=== PATIENT | female | born 1940 | race Two or more races ===

== ENCOUNTER 2022-04-13 16:48 | Inpatient (IN) | payer MEDICARE, OTHER ==
[~2022-04-13] VITALS: Ht 154.9 cm; Wt 56.2 kg
--- NOTE | 2022-04-13 18:50 | NUR ---
PATIENT ADMITTED FROM [facility] ACCOMPANIED BY 2 sock ironer WITH TON, REPORTED BY MATT/RN OVER THE PHONE. ADMITTING DX ARE ACUTE HYPOXIA, PNEUMONIA, AND RESPIRATORY FAILURE. IN NO ACUTE DISTRESS OBSERVED, CHECKED VITAL SIGN. CALL LIGHT WITHIN REACH, WILL ENDORSE BOAT OUTFITTING SUPERVISOR.
--- NOTE | 2022-04-13 19:30 | NUR ---
RN NOTE PT RECEIVED IN BED A/O X3-4 WELSH SPEAKING MAINLY BUT CAN COMMUNICATE NEEDS IN PALESTINIAN. PT FAMILY AT BEDSIDE ABLE TO PROVIDE MEDICAL HISTORY. PT ON 5L NC TOLERATING WELL ON 97 % PT TITRATED DOWN TO 4L 95% TOLERATING WELL. PT ON TELE MONITOR READING A-FIB 119. ALL NEEDS MET AT THIS TIME CALL LIGHT WITHIN REACH TABLE WITHIN REACH. PT NOTED WITH IV ACCES ON THE RAC 320G FLUSHING WELL. NEW IV ACCESS ESTABLISHED ON L HAND 322G PT WILL BE HAVING MULTIPLE REPLETIONS AND ATX ADMINISTERED. Addendum: 04/14/22 at 0456 by BAHMAN CANNON RN UPON SKIN ASSESSMENT PT NOTED WITH L INDEX FINGER CUT, BILATERAL HEEL REDNESS, SACRUM/ PERINEAL REDNESS AND HEMORRHOIDS. PHOTOS TAKEN PLACED IN CHART WOUND CONSULT ORDERED.
[2022-04-13 20:00] VITALS: BP 132/64
[2022-04-13] MEDS ORDERED: MAG HYDROX/AL HYDROX/SIMETH 30 ML UDC PO PRN (21:00)
[2022-04-13] MEDS ORDERED: CEFEPIME 1 GM in IV D5W 50 ML IV SCH (21:00)
[2022-04-13] MEDS ORDERED: MAGNESIUM HYDROXIDE 30 ML UDC PO PRN (21:00)
[2022-04-13] MEDS ORDERED: ACETAMINOPHEN 325 MG TABLET PO PRN (21:00)
[2022-04-13] MEDS ORDERED: IV 1/2NS 1000 ML 1,000 ML IV PRN (21:00)
[2022-04-13] MEDS ORDERED: ONDANSETRON HCL/PF 4 MG/2 ML VIAL IVP PRN (21:00)
[2022-04-13] MEDS ORDERED: Z GUARD REMEDY 4 OZ OINT TP PRN (21:00)
[2022-04-13] MEDS ORDERED: ATOR20TA PO (21:30)
[2022-04-13] MEDS ORDERED: APIX5TAB PO (21:30)
[2022-04-13] MEDS ORDERED: ALBU2.5V13 NEB (21:30)
[2022-04-13] MEDS ORDERED: EMPA10TA PO (21:30)
[2022-04-13] MEDS ORDERED: DOCU100C36 PO (21:30)
[2022-04-13] MEDS ORDERED: HYDR-4209 PO (21:30)
[2022-04-13] MEDS ORDERED: PANT40TA2 PO (21:30)
[2022-04-13] MEDS ORDERED: METO25TA6 PO (21:30)
[2022-04-13] MEDS ORDERED: AMLO-212 PO (21:30)
[2022-04-13 21:41] LABS: BASOPHILS % (AUTO) 0.1 % (0.0-2.0); HEMATOCRIT 25 % (33-45); HEMOGLOBIN 8.4 g/dL (11.5-14.8); LYMPHOCYTES # (AUTO) 0.5 K/uL (0.8-4.8); LYMPHOCYTES % (AUTO) 4.3 % (20.0-44.0); MEAN CORPUSCULAR HGB CONC 34 g/dl (31.0-36.0); MEAN CORPUSCULAR VOLUME 83 fL (82-100); MONOCYTES # (AUTO) 0.6 K/uL (0.1-1.30); MONOCYTES % (AUTO) 5.5 % (2.0-12.0); NEUTROPHILS # (AUTO) 9.9 K/uL (1.8-8.9); NEUTROPHILS % (AUTO) 90.1 % (43.0-81.0); PLATELET COUNT (AUTO) 558 K/uL (150-450); RED BLOOD CELL COUNT(AUTO) 3.01 MIL/uL (4.0-5.2)
--- NOTE | 2022-04-13 21:45 | NUR ---
RN NOTE RT CALLED FOR BREATHING TREATMENTS TO BE ADMINISTERED. PER RT ON THEIR WAY.
--- NOTE | 2022-04-13 21:45 | NUR ---
RN NOTE PT NOTED WITH TELE REEDING A- FIB 100-130S PT ASSESSED BY DESIGN TRANSFERRER OPEN DEVELOPER OPERATOR CARLIN ONE TIME ORDER FOR CARDIZEM 5MG IV PUSH ORDERED AND ADMINISTERED.
[2022-04-13 21:49] LABS: CALCIUM, SERUM 7.8 mg/dL (8.5-10.1); CARBON DIOXIDE 34 mmol/L (21-32); CHLORIDE 86 mmol/L (98-107); CREATININE 0.5 mg/dL (0.6-1.3); GLUCOSE 115 mg/dL (74-106); SODIUM SERUM 123 mmol/L (136-145); UREA NITROGEN, BLOOD 9 mg/dL (7-18)
[2022-04-13 21:52] LABS: POTASSIUM 2.8 mmol/L (3.5-5.1)
[2022-04-13 21:54] LABS: ALANINE AMINOTRANSFERASE 20 U/L (12-78); ALBUMIN 2.6 g/dL (3.4-5.0); ALKALINE PHOSPHATASE 69 U/L (46-116); ASPARTATE AMINOTRANSFERASE 22 U/L (15-37); BILIRUBIN,TOTAL 0.4 mg/dL (0.2-1.0); MAGNESIUM 1.3 mg/dL (1.8-2.4); TOTAL PROTEIN, SERUM 6.3 g/dL (6.4-8.2)
[2022-04-13] MEDS ORDERED: DILTIAZEM HCL 25 MG IV IV ONE (22:00)
[2022-04-13 22:07] LABS: LYMPHOCYTES % (MANUAL) 5 % (16-48); MONOCYTES % (MANUAL) 5 % (0-11.0); NEUTROPHILS % (MANUAL) 90 (42-76)
[2022-04-13] MEDS: methylPREDNISolone SOD SUCC 40 MG/ML VIAL IV SCH (22:26)
[2022-04-13] MEDS ORDERED: VANCOMYCIN 1 GM in IV D5W 250ml IV ONE (22:30)
[2022-04-13] MEDS ORDERED: POTASSIUM CHLORIDE 20 MEQ TAB.PRT.SR PO SCH (22:30)
[2022-04-13] MEDS ORDERED: VANCOMYCIN 1 GM VIAL ONE (22:30)
[2022-04-13] MEDS ORDERED: CEFEPIME 1 GM VIAL ONE (23:01)
[2022-04-13] MEDS: LEVALBUTEROL HCL NEB 1.25 MG/0.5 ML VIAL.NEB NEB SCH (23:07)
[2022-04-13] MEDS: IPRATROPIUM NEB FS 0.5 MG/2.5 ML AMPUL.NEB NEB SCH (23:07)
[2022-04-13] MEDS: POTASSIUM CL. PREMIX PERIPHER. 50 ML IV SCH (23:13)
[2022-04-13] MEDS: Magnesium 1GM/D5W 100ML PREMIX 100 ML IV SCH (23:13)
--- NOTE | 2022-04-13 23:15 | NUR ---
RT JUST MADE AWARE OF TX DUE AT 2100. NEB TX GIVEN AT 2300, RN AWARE. PT RECVD ON 4 LPM NC. AUDIBLE WHEEZES OBSERVED. NO SOB OR RESPIRATORY DISTRESS NOTED AT THIS TIME. NEB TX GIVEN AND ALY WELL
[2022-04-14] VITALS: BP_SYST 132; BP_SYST 162; BP_DIAS 64
[2022-04-14] MEDS ORDERED: POTASSIUM CHLORIDE 20 MEQ TAB.PRT.SR PO ONE ×3 (01:00)
[2022-04-14] MEDS: POTASSIUM CL. PREMIX PERIPHER. 50 ML IV SCH (01:15)
[2022-04-14] MEDS: IPRATROPIUM NEB FS 0.5 MG/2.5 ML AMPUL.NEB NEB SCH ×4 (02:28→20:24)
[2022-04-14] MEDS: LEVALBUTEROL HCL NEB 1.25 MG/0.5 ML VIAL.NEB NEB SCH ×4 (02:33→20:24)
[2022-04-14] MEDS: Magnesium 1GM/D5W 100ML PREMIX 100 ML IV SCH ×3 (02:49→06:04)
[2022-04-14 04:00] VITALS: BP 120/83
[2022-04-14] MEDS ORDERED: DILTIAZEM HCL 50 MG IV IV ONE (04:00)
--- NOTE | 2022-04-14 04:33 | NUR ---
RN NOTE PT REFUSED DVT PUMPS RISK AND BENEFITS EXPLAINED X3 REFUSED X3.
[2022-04-14] MEDS ORDERED: Magnesium 1GM/D5W 100ML PREMIX 200 ML IV ONE (04:39)
[2022-04-14] MEDS: methylPREDNISolone SOD SUCC 40 MG/ML VIAL IV SCH ×3 (04:40→21:13)
--- NOTE | 2022-04-14 04:54 | NUR ---
RN NOTE PT HR NOTED TO START GOING BACK UP TP 130-140S NATIONAL ACCOUNT MANAGER EMPLOYEE PLACEMENT SPECIALIST RAEGAN MADE AWARE RECEIVED AN ORDER OF CARDIZEM 5MG IV PUSH X1, ADMINISTERED.
--- NOTE | 2022-04-14 07:00 | NUR ---
RN CLOSING NOTE PT A/O X3 NOTTAWASEPPI POTAWATOMI ON THE LEFT SIDE WITH HEARING AID HEARING AID OFF AT THIS TIME IN BAG WITH PATIENT LABEL AT BEDSIDE AT THIS TIME. REMAINS ON 4L NASAL CANNULA TOLERATING WELL WITH O2 SAT 94-95 %. NO PAIN OR DISCOMFORT REPORTED OR NOTED AT THIS TIME. NOTED PT DOES BECOME SHORT OF BREATH WITH EXERTION AND REPOSITIONING.PT ON TELE MONITOR READING A- FIB 113. PT RUNNING NS @ 75ML/HR ON THE RAC # 20G TOLERATING WELL AND MAG 1GM ON THE L HAND #22G TOLERATING WELL. ALL DUE MEDS GIVEN AND TOLERATED WELL. PT ADVISED TO KEEP HOB ELEVATED FOR BETTER LUNG EXPANSION PT REFUSES AND CONTINUES TO LIE FLAT. PT STILL REFUSING DVT PUMPS DESPITE RISK AND BENEFITS EXPLAINED PT STATED " NO I DON'T NEED". ALL NURSING NEEDS MET. CALL LIGHT WITHIN REACH. TABLE WITHIN REACH. ALL SAFETY MEASURES FOLLOWED AT ALL TIMES. UPDATE PROVIDED TO FAMILY REGARDING PT CARE TO GRANDDAUGHTER, PER GRANDDAUGHTER WOULD LIKE TO SPEAK TO HOSPITALIST REGARDING PLAN OF CARE ONCE PT HAS BEEN ASSESSED.WILL ENDORSE CARE TO DAY SHIFT NURSE FOR CYNTHIA.
--- NOTE | 2022-04-14 07:21 | NUR ---
CLARITY DEVELOPER OPENING NOTE RECEIVED PATIENT ON BED. PATIENT EASILY WOKEN UP BY CALL OR TOUCH. PATIENT IS ALERT AND ORIENTED X 3, MOSTLY BHUTANESE SPEAKING. WITH TLINGIT & HAIDA WITH HEARING AIDE ON THE LEFT EAR. WITH OXYGEN AT 3-4 LPM VIA NASAL CANULA, WITH EQUAL AND SOME LABORED BREATHING NOTED BUT RESTING COMFORTABLE. WITH OXYGEN SATURATION OF 98%. WITH IV ACCESS ON THE RIGHT AC G 20 ON SALINE LOCK, PATENT AND INTACT. WITH IV ACCESS ON THE LEFT HAND G22 WITH IVF OF 1/2 NS RUNNING AT 75 ML/HR INFUSING WELL. MAINTAINED ON HIGH BACK REST. NO PAIN OR DISCOMFORT REPORTED OR NOTED AT THIS TIME. PT ON TELE MONITOR READING A- FIB 114. PT STILL REFUSING DVT PUMPS DESPITE RISK AND BENEFITS EXPLAINED CALL LIGHT WITHIN REACH. BED IN LOWEST LOCKED POSITION. BED ALARM ON AND SIDERAILS RAISED FOR SAFETY. IN STABLE CONDITION.
[2022-04-14 07:41] LABS: HEMATOCRIT 25 % (33-45); HEMOGLOBIN 8.4 g/dL (11.5-14.8); LYMPHOCYTES # (AUTO) 0.3 K/uL (0.8-4.8); LYMPHOCYTES % (AUTO) 2.9 % (20.0-44.0); MEAN CORPUSCULAR HGB CONC 33 g/dl (31.0-36.0); MEAN CORPUSCULAR VOLUME 85 fL (82-100); MONOCYTES # (AUTO) 0.2 K/uL (0.1-1.30); MONOCYTES % (AUTO) 1.8 % (2.0-12.0); NEUTROPHILS # (AUTO) 9.7 K/uL (1.8-8.9); NEUTROPHILS % (AUTO) 95.3 % (43.0-81.0); PLATELET COUNT (AUTO) 528 K/uL (150-450); RED BLOOD CELL COUNT(AUTO) 2.98 MIL/uL (4.0-5.2); WHITE BLOOD COUNT (AUTO) 10.1 K/uL (4.3-11.0)
[2022-04-14 08:00] VITALS: BP 137/76
[2022-04-14 08:00] LABS: CALCIUM, SERUM 7.5 mg/dL (8.5-10.1); CARBON DIOXIDE 25 mmol/L (21-32); CHLORIDE 87 mmol/L (98-107); CREATININE 0.4 mg/dL (0.6-1.3); GLUCOSE 220 mg/dL (74-106); MAGNESIUM 3.4 mg/dL (1.8-2.4); PHOSPHORUS 1.7 mg/dL (2.5-4.9); UREA NITROGEN, BLOOD 8 mg/dL (7-18)
[2022-04-14 08:05] LABS: CHOLESTEROL 111 mg/dL (<200); HDL CHOLESTEROL 55 mg/dL (40-60); LDL 48 mg/dL (0-99); THYROID STIMULATING HORMONE 0.631 uIU/mL (0.358-3.74); TRIGLYCERIDES 36 mg/dL (30-150)
[2022-04-14 08:06] LABS: SODIUM SERUM 119 mmol/L (136-145)
[2022-04-14] MEDS: PANTOPRAZOLE 40 MG TABLET.DR PO SCH (08:54)
[2022-04-14] MEDS: APIXABAN 5 MG TABLET PO SCH ×2 (08:56→17:29)
[2022-04-14] MEDS ORDERED: AMLODIPINE BESYLATE 5 MG TABLET PO SCH (09:00)
[2022-04-14] MEDS: CEFEPIME 2 GM in IV D5W 100 ML IV SCH ×2 (09:46→21:12)
[2022-04-14] MEDS ORDERED: DEXTROSE 50%-WATER 50 ML DISP.SYRIN IV PRN (10:00)
[2022-04-14] MEDS ORDERED: NEUTRA PHOS 1 POWD.PACKET PO ONE ×2 (10:00→11:00)
[2022-04-14] MEDS ORDERED: IV NS 0.9% 1,000 ML IV PRN (10:00)
[2022-04-14] MEDS ORDERED: IV Sodium Chloride 3% 500 ML 500 ML IV PRN (11:00)
[2022-04-14] MEDS ORDERED: BLOOD SUGAR DIAGNOSTIC 1 EACH STRIP IN SCH (11:00)
--- NOTE | 2022-04-14 11:10 | NUR ---
HOME HEALTH RN NOTE SEEN BY HOSPITALIST Marco A VALENCIA, WITH FAMILY AT BEDSIDE. IN STABLE CONDITION.
--- NOTE | 2022-04-14 12:05 | NUR ---
TURN SUPERVISOR NOTE BLOOD SUGAR CHECK DONE BUT READING INACCURATE BECAUSE PATIENT IS POST PRANDIAL. FAMILY AT BEDSIDE AND WAS FEEDING PATIENT. NO SIGNS AND SYMPTOMS OF HYPERGLYCEMIA NOTED. IN STABLE CONDITION.
[2022-04-14] MEDS: DOCUSATE SODIUM 100 MG CAPSULE PO SCH (12:48)
[2022-04-14 16:00] VITALS: BP 106/77
[2022-04-14] MEDS: BLOOD SUGAR DIAGNOSTIC 1 EACH STRIP IN SCH ×2 (16:49→21:16)
[2022-04-14] MEDS: VANCOMYCIN 1 GM in IV D5W 250 ML IV SCH (17:37)
--- NOTE | 2022-04-14 19:30 | NUR ---
TYPING TEACHER CLOSING NOTE PATIENT ON BED. PATIENT EASILY WOKEN UP BY CALL OR TOUCH. PATIENT IS ALERT AND ORIENTED X 3, MOSTLY AUSTRIAN SPEAKING. WITH MORONGO WITH HEARING AIDE ON THE LEFT EAR. WITH OXYGEN AT 3-4 LPM VIA NASAL CANULA, WITH EQUAL AND SOME LABORED BREATHING NOTED BUT RESTING COMFORTABLE. WITH OXYGEN SATURATION OF 96%. WITH IV ACCESS ON THE RIGHT AC G 20 ON SALINE LOCK, PATENT AND INTACT. WITH IV ACCESS ON THE LEFT HAND G22 WITH IVF OF NS RUNNING AT 75 ML/HR INFUSING WELL. MAINTAINED ON HIGH BACK REST. NO PAIN OR DISCOMFORT REPORTED OR NOTED AT THIS TIME. PT ON TELE MONITOR READING A- FIB 103. PT STILL REFUSING DVT PUMPS DESPITE RISK AND BENEFITS EXPLAINED CALL LIGHT WITHIN REACH. REFUSED IN AND OUT CATHETERIZATION FOR URINE COLLECTION WITH SON AT BEDSIDE. WE TRIED TO USE BEDPAN SEVERAL TIMES BUT SHE REFUSED WELL. BED IN LOWEST LOCKED POSITION. BED ALARM ON AND SIDERAILS RAISED FOR SAFETY. IN STABLE CONDITION. ENDORSED ACCORDINGLY.
--- NOTE | 2022-04-14 19:30 | NUR ---
RN OPENING NOTE RECEIVED PATIENT IN BED, WITH HOB ELEVATED, WITH EYES CLOSED BUT EASY TO AROUSE AND RESPONSIVE. AFEBRILE AND NOT IN ANY FORM F ACUTE DISTRESS. BREATHING EVEN AND NON LABORED. ON O2 INHALATION VIA NASAL CANNULA AT 3LPM SATURATING AT 96%. ON TELE MONITORING AND NOTED WITH A-FIB AT 117 AT THIS TIME. WITH IV ACCESS ON RIGHT ANTECUBITAL SL AND L HAND 22G RUNNING WITH NS AT 75ML/HR. SAFETY MEASURES IN PLACE. KEPT BED IN LOCKED AND IN LOW POSITION. SIDE RAILS UP X2. CALL LIGHT WITHIN EASY REACH.
[2022-04-14 20:00] VITALS: BP 130/91
[2022-04-14] MEDS: ATORVASTATIN 10 MG TABLET PO SCH (21:13)
[2022-04-14] MEDS: INSULIN REGULAR, HUMAN 100 UNIT/ML 3 ML VIAL SQ PRN (21:19)
[2022-04-14 23:27] LABS: CALCIUM, SERUM 7.2 mg/dL (8.5-10.1); CARBON DIOXIDE 28 mmol/L (21-32); CHLORIDE 95 mmol/L (98-107); CREATININE 0.5 mg/dL (0.6-1.3); GLUCOSE 161 mg/dL (74-106); POTASSIUM 4.1 mmol/L (3.5-5.1); SODIUM SERUM 126 mmol/L (136-145); UREA NITROGEN, BLOOD 12 mg/dL (7-18)
[2022-04-15] VITALS: BP 127/82
[2022-04-15] MEDS: LEVALBUTEROL HCL NEB 1.25 MG/0.5 ML VIAL.NEB NEB SCH ×4 (01:38→20:00)
[2022-04-15] MEDS: IPRATROPIUM NEB FS 0.5 MG/2.5 ML AMPUL.NEB NEB SCH ×4 (01:38→20:00)
--- NOTE | 2022-04-15 01:48 | NUR ---
Pt recvd awake on 4 lpm NC, neb tx given and aurelia well. no SOB or respiratory distress noted. O2 increased to 5 lpm at this time. RN and process controller aware.
[2022-04-15 05:00] VITALS: BP 124/92
[2022-04-15] MEDS: methylPREDNISolone SOD SUCC 40 MG/ML VIAL IV SCH ×4 (05:01→17:40)
[2022-04-15 06:19] LABS: BASOPHILS % (AUTO) 0.1 % (0.0-2.0); HEMATOCRIT 23 % (33-45); HEMOGLOBIN 7.7 g/dL (11.5-14.8); LYMPHOCYTES # (AUTO) 0.3 K/uL (0.8-4.8); LYMPHOCYTES % (AUTO) 3.6 % (20.0-44.0); MEAN CORPUSCULAR HGB CONC 34 g/dl (31.0-36.0); MEAN CORPUSCULAR VOLUME 84 fL (82-100); MONOCYTES # (AUTO) 0.4 K/uL (0.1-1.30); MONOCYTES % (AUTO) 4.4 % (2.0-12.0); NEUTROPHILS # (AUTO) 7.9 K/uL (1.8-8.9); NEUTROPHILS % (AUTO) 91.9 % (43.0-81.0); PLATELET COUNT (AUTO) 509 K/uL (150-450); RED BLOOD CELL COUNT(AUTO) 2.74 MIL/uL (4.0-5.2); WHITE BLOOD COUNT (AUTO) 8.6 K/uL (4.3-11.0)
[2022-04-15 06:35] LABS: CALCIUM, SERUM 7.3 mg/dL (8.5-10.1); CARBON DIOXIDE 30 mmol/L (21-32); CHLORIDE 97 mmol/L (98-107); CREATININE 0.4 mg/dL (0.6-1.3); GLUCOSE 187 mg/dL (74-106); MAGNESIUM 2.3 mg/dL (1.8-2.4); PHOSPHORUS 2.1 mg/dL (2.5-4.9); POTASSIUM 3.8 mmol/L (3.5-5.1); SODIUM SERUM 130 mmol/L (136-145); UREA NITROGEN, BLOOD 12 mg/dL (7-18)
[2022-04-15] MEDS: BLOOD SUGAR DIAGNOSTIC 1 EACH STRIP IN SCH ×4 (06:47→21:14)
--- NOTE | 2022-04-15 07:05 | NUR ---
RN CLOSING NOTE PATIENT IN BED, WITH HOB ELEVATED, WITH EYES CLOSED BUT EASY TO AROUSE AND RESPONSIVE. AFEBRILE AND NOT IN ANY FORM F ACUTE DISTRESS. BREATHING EVEN AND NON LABORED. ON O2 INHALATION VIA NASAL CANNULA AT 5LPM SATURATING AT 94%. ON TELE MONITORING AND NOTED WITH A-FIB AT THIS TIME. WITH IV ACCESS ON RIGHT FOREARM 20G RUNNING WITH NS AT 75ML/HR. SAFETY MEASURES IN PLACE. KEPT BED IN LOCKED AND IN LOW POSITION. SIDE RAILS UP X2. CALL LIGHT WITHIN EASY REACH. PT REFUSED MORNING DOSE OF INSULIN RISK AND BENEFITS EXPLAINED X3 PER PT " I WILL TAKE INSULIN AFTER BREAKFAST NOT NOW" WILL ENDORSE CYNTHIA TO DAY SHIFT NURSE.
--- NOTE | 2022-04-15 07:15 | NUR ---
MELTER SUPERVISOR ELECTRIC ARC FURNACE OPENING NOTE RECEIVED PATIENT ON BED ASLEEP. PATIENT EASILY WOKEN UP BY CALL OR TOUCH. PATIENT IS ALERT AND ORIENTED X 3. WITH MENOMINEE WITH HEARING AID ON THE LEFT EAR. WITH OXYGEN AT 5 LPM VIA NASAL CANULA, WITH EQUAL AND SOME LABORED BREATHING NOTED BUT RESTING COMFORTABLE. WITH OXYGEN SATURATION OF 95%. WITH IV ACCESS ON THE RIGHT FOREARM G 20 ON NS RUNNING AT 75 ML/HR INFUSING WELL. MAINTAINED ON HIGH BACK REST. NO PAIN OR DISCOMFORT REPORTED OR NOTED AT THIS TIME. PT ON TELE MONITOR READING A- FIB UNCONTROLLED AT 130 BPM. PT STILL REFUSING DVT PUMPS DESPITE RISK AND BENEFITS EXPLAINED CALL LIGHT WITHIN REACH. BED IN LOWEST LOCKED POSITION. BED ALARM ON AND SIDERAILS RAISED FOR SAFETY. IN STABLE CONDITION.
[2022-04-15 08:00] VITALS: BP 118/93
[2022-04-15 08:16] LABS: BILIRUBIN,URINE NEGATIVE (NEGATIVE); COLOR,URINE YELLOW (YELLOW); LEUKOCYTE ESTERASE ,URINE NEGATIVE (NEGATIVE); NITRITE, URINE NEGATIVE (NEGATIVE); PROTEIN,URINE NEGATIVE (NEGATIVE); UGLUCOSE TRACE mg/dL (NEGATIVE); UROBILINOGEN,URINE 0.2 EU/dL (0.2)
[2022-04-15] MEDS: PANTOPRAZOLE 40 MG TABLET.DR PO SCH (09:27)
--- NOTE | 2022-04-15 09:44 | NUR ---
BUSINESS PLANNER NOTE MEDICATION GIVEN AT 927
[2022-04-15] MEDS: DILTIAZEM HCL CD 240 MG PO SCH (09:55)
--- NOTE | 2022-04-15 09:56 | NUR ---
WOUND CARE CONSULT: PT PRESENTS WITH BILATERAL HEEL INTACT DEEP TISSUE INJURIES (RED IN COLOR), LEFT ELBOW SCAB AND LEFT INDEX FINGER DRY SCAB, ALL PRESENT ON ADMISSION. PT HAS BEEN REFUSING TO FLOAT HEELS ON PILLOWS PER NURSING STAFF. PT TO BE ENCOURAGED TO ALLOW OFFLOADING OF HEELS. DISCUSSED SKIN PROTECTION WITH NURSING STAFF. IN AGREEMENT WITH PLAN OF CARE. Addendum: 04/15/22 at 0959 by ELEN SHINE WNDNU Amended: Links added.
[2022-04-15] MEDS ORDERED: K PHOS NEUTRAL 250 MG TABLET PO ONE (10:00)
--- NOTE | 2022-04-15 11:00 | NUR ---
TELEL RN NOTE PATIENT SEEN BY HOSPITALIST Marco A VALENCIA.
[2022-04-15 12:00] VITALS: BP 125/83
[2022-04-15] MEDS: DOCUSATE SODIUM 100 MG CAPSULE PO SCH (13:00)
[2022-04-15] MEDS: CEFEPIME 2 GM in IV D5W 100 ML IV SCH ×2 (13:01→21:04)
[2022-04-15] MEDS: GLUCERNA SHAKE 237 ML CAN PO SCH ×2 (15:22→17:00)
[2022-04-15 16:00] VITALS: BP 111/78
[2022-04-15] MEDS: VANCOMYCIN 1 GM in IV D5W 250 ML IV SCH (18:24)
--- NOTE | 2022-04-15 18:54 | NUR ---
WIRE STEWARD CLOSING NOTE PATIENT IS ALERT AND ORIENTED X 3. WITH [place]UR[place] WITH HEARING AID ON THE LEFT EAR. WITH OXYGEN AT 4 LPM VIA NASAL CANULA, WITH EQUAL AND SOME LABORED BREATHING NOTED BUT RESTING COMFORTABLE. WITH OXYGEN SATURATION OF 92-95%. WITH IV ACCESS ON THE RIGHT FOREARM G 20 ON SALINE LOCK, PATENT AND INTACT. MAINTAINED ON HIGH BACK REST. NO PAIN OR DISCOMFORT REPORTED OR NOTED AT THIS TIME. PT ON TELE MONITOR READING A- FIB UNCONTROLLED AT 118 BPM. PT STILL REFUSING DVT PUMPS DESPITE RISK AND BENEFITS EXPLAINED CALL LIGHT WITHIN REACH. BED IN LOWEST LOCKED POSITION. BED ALARM ON AND SIDERAILS RAISED FOR SAFETY. IN STABLE ENDORSED TO NEXT SHIFT FOR CONTINUITY OF CARE.
--- NOTE | 2022-04-15 19:45 | NUR ---
RN OPENING NOTES RECEIVED PT IN BED, AWAKE, MUMBLING WORDS IN FAROESE, WITH GRANDSON AT BEDSIDE. AOx3. ON NC 4LPM AND TOLERATING WELL. NO SOB NOTED. NO S/SX OF RESPIRATORY DISTRESS NOTED. IV ACCESS IN RFA #20G. IV IS INTACT, PATENT, AND FLUSHING WELL. SAFETY PRECAUTIONS IN PLACE: BED IN LOWEST, LOCKED POSITION, SIDERAILS UPx2, AND BRAKES ON. TABLE AND CALL LIGHT WITHIN REACH. ALL NEEDS MET AT THIS TIME.
[2022-04-15 20:00] VITALS: BP 116/71
[2022-04-15] MEDS: ATORVASTATIN 10 MG TABLET PO SCH (21:04)
[2022-04-15] MEDS: INSULIN REGULAR, HUMAN 100 UNIT/ML 3 ML VIAL SQ PRN (21:16)
[2022-04-16] VITALS (7 sets, daily range): BP systolic 106–144; BP diastolic 65–92
[2022-04-16] MEDS: IPRATROPIUM NEB FS 0.5 MG/2.5 ML AMPUL.NEB NEB SCH ×4 (01:54→20:16)
[2022-04-16] MEDS: LEVALBUTEROL HCL NEB 1.25 MG/0.5 ML VIAL.NEB NEB SCH ×4 (01:54→20:16)
[2022-04-16] MEDS: CEFEPIME 2 GM in IV D5W 100 ML IV SCH ×3 (05:09→20:56)
[2022-04-16 06:10] LABS: CALCIUM, SERUM 7.9 mg/dL (8.5-10.1); CARBON DIOXIDE 29 mmol/L (21-32); CHLORIDE 97 mmol/L (98-107); CREATININE 0.5 mg/dL (0.6-1.3); GLUCOSE 168 mg/dL (74-106); POTASSIUM 4.1 mmol/L (3.5-5.1); SODIUM SERUM 132 mmol/L (136-145); UREA NITROGEN, BLOOD 15 mg/dL (7-18)
[2022-04-16] MEDS: BLOOD SUGAR DIAGNOSTIC 1 EACH STRIP IN SCH ×4 (06:42→21:39)
[2022-04-16] MEDS: INSULIN REGULAR, HUMAN 100 UNIT/ML 3 ML VIAL SQ PRN ×2 (06:42→21:39)
[2022-04-16 06:46] LABS: BASOPHILS % (AUTO) 0.1 % (0.0-2.0); HEMATOCRIT 23 % (33-45); HEMOGLOBIN 7.6 g/dL (11.5-14.8); LYMPHOCYTES # (AUTO) 0.3 K/uL (0.8-4.8); LYMPHOCYTES % (AUTO) 3.6 % (20.0-44.0); MEAN CORPUSCULAR HGB CONC 33 g/dl (31.0-36.0); MEAN CORPUSCULAR VOLUME 84 fL (82-100); MONOCYTES # (AUTO) 0.5 K/uL (0.1-1.30); MONOCYTES % (AUTO) 5.1 % (2.0-12.0); NEUTROPHILS # (AUTO) 8.7 K/uL (1.8-8.9); NEUTROPHILS % (AUTO) 91.2 % (43.0-81.0); PLATELET COUNT (AUTO) 516 K/uL (150-450); RED BLOOD CELL COUNT(AUTO) 2.74 MIL/uL (4.0-5.2); WHITE BLOOD COUNT (AUTO) 9.5 K/uL (4.3-11.0)
--- NOTE | 2022-04-16 07:30 | NUR ---
CARBON SEQUESTRATION PLANT MANAGER NOTES PT IN BED, AWAKE, ALERT AND ORIENTED, NO COMPLAINT AT THIS TIME, CALL LIGHT WITHIN REACH, KEPT CLEAN, DRY AND COMFORTABLE.
--- NOTE | 2022-04-16 07:40 | NUR ---
RN CLOSING NOTES PT IN BED, ASLEEP, AWAKENS TO VERBAL STIMULI. AOx3. ON NC 4LPM AND TOLERATING WELL. NO SOB NOTED. NO S/SX OF RESPIRATORY DISTRESS NOTED.TELE MONITOR DETECTS SINUS RHYTHM. IV ACCESS IN RFA #20G. IV IS INTACT, PATENT, AND FLUSHING WELL. ALL ORDERS CARRIED OUT. ALL NEEDS MET. PT KEPT CLEAN AND DRY. SAFETY PRECAUTIONS IN PLACE: BED IN LOWEST, LOCKED POSITION, SIDERAILS UPx2, AND BRAKES ON. TABLE AND CALL LIGHT WITHIN REACH. WILL ENDORSE TO ONCOMING SHIFT FOR CYNTHIA.
[2022-04-16] MEDS: METOPROLOL TARTRATE 25 MG TABLET PO SCH ×2 (08:53→21:23)
[2022-04-16] MEDS: DILTIAZEM HCL CD 240 MG PO SCH (08:53)
[2022-04-16] MEDS: PANTOPRAZOLE 40 MG TABLET.DR PO SCH (08:54)
[2022-04-16] MEDS: methylPREDNISolone SOD SUCC 40 MG/ML VIAL IV SCH ×2 (08:54→16:57)
[2022-04-16] MEDS ORDERED: NEUTRA PHOS 1 POWD.PACKET PO ONE (11:00)
--- NOTE | 2022-04-16 11:13 | NUR ---
SLICE CUTTING MACHINE OPERATOR HELPER NOTES MD ORDERED BLOOD TRANSFUSION, PT AND DAUGHTER IN LAW INFORMED, CONSENT SIGNED.
[2022-04-16] MEDS: GLUCERNA SHAKE 237 ML CAN PO SCH ×2 (11:54→16:57)
[2022-04-16] MEDS: DOCUSATE SODIUM 100 MG CAPSULE PO SCH (12:23)
[2022-04-16 13:29] LABS: OCCULT BLOOD STOOL NEGATIVE (NEGATIVE)
[2022-04-16] MEDS: VANCOMYCIN 1 GM in IV D5W 250ml IV SCH (18:15)
--- NOTE | 2022-04-16 18:25 | NUR ---
WATCHMAKER APPRENTICE NOTES PT IN BED, AWAKE, ALERT AND ORIENTED, NOT IN DISTRESS,ON 02 AT 4LPM VIA N/C, FAMILY AT BEDSIDE, COMPLETED 1 UNIT PRBC TRANSFUSION, TOLERATED WELL, NO ADVERSE REACTION NOTED, PM MEDS GIVEN, CALL LIGHT WITHIN REACH.
--- NOTE | 2022-04-16 19:20 | NUR ---
TRAINING AND QUALITY MANAGER OPENING NOTES RECEIVED PT IN BED, AWAKE AT THIS TIME. A/O x3-4, [place] L EAR. ON O2 4L VIA NC WITH NO S/S OF SOB OR LABORED BREATHING. ON TELE MONITOR SHOWING AFIB @ 86 BPM. IV RFA #20G SL, PATENT AND INTACT. SAFETY PRECAUTIONS IN PLACE: BED LOCKED AND IN LOW POSITION; SIDE RAILS UP X2; CALL LIGHT AND TRAY TABLE WITHIN REACH. WILL CONTINUE TO MONITOR AND ASSIST.
--- NOTE | 2022-04-16 20:51 | NUR ---
RN NOTE PT HEARING AID CURRENTLY OFF IN BOX ON BEDSIDE TABLE. PT CHANGED AT THIS TIME. KEPT CLEAN AND DRY ALL NEEDS MET AT THIS TIME.
[2022-04-16] MEDS: ATORVASTATIN 10 MG TABLET PO SCH (21:23)
[2022-04-17 00:28] VITALS: BP 135/85
[2022-04-17] MEDS: IPRATROPIUM NEB FS 0.5 MG/2.5 ML AMPUL.NEB NEB SCH ×5 (01:30→20:10)
[2022-04-17] MEDS: LEVALBUTEROL HCL NEB 1.25 MG/0.5 ML VIAL.NEB NEB SCH ×5 (01:30→20:10)
[2022-04-17 04:15] VITALS: BP 138/88
[2022-04-17] MEDS: CEFEPIME 2 GM in IV D5W 100 ML IV SCH ×3 (04:50→21:44)
[2022-04-17] MEDS: VANCOMYCIN 1 GM in IV D5W 250ml IV SCH ×2 (05:47→18:15)
[2022-04-17 07:00] VITALS: BP 137/87
[2022-04-17 07:09] LABS: CALCIUM, SERUM 8.4 mg/dL (8.5-10.1); CARBON DIOXIDE 29 mmol/L (21-32); CHLORIDE 94 mmol/L (98-107); CREATININE 0.6 mg/dL (0.6-1.3); GLUCOSE 147 mg/dL (74-106); PHOSPHORUS 2.2 mg/dL (2.5-4.9); POTASSIUM 4.8 mmol/L (3.5-5.1); SODIUM SERUM 128 mmol/L (136-145); UREA NITROGEN, BLOOD 22 mg/dL (7-18)
--- NOTE | 2022-04-17 07:16 | NUR ---
POULTRY SERVICE TECHNICIAN CLOSING NOTES PT IN BED, SLEEPING AT THIS TIME. A/O x3-4, CHENE[place] L EAR. STABLE ON O2 4L VIA NC WITH NO S/S OF SOB OR LABORED BREATHING. ON TELE MONITOR SHOWING AFIB @ 86 BPM. IV RFA #20G SL, PATENT AND INTACT. ALL CARE PROVIDED AND ADMINISTERED MEDICATIONS TOLERATED WELL. SAFETY PRECAUTIONS MAINTAINED: BED LOCKED AND IN LOW POSITION; SIDE RAILS UP X2; CALL LIGHT AND TRAY TABLE WITHIN REACH. WILL ENDORSE CYNTHIA TO CONSTRUCTION ACCOUNTANT NURSE.
--- NOTE | 2022-04-17 07:30 | NUR ---
RETAIL PHARMACY MANAGER NOTES PT IN BED, AWAKE, ALERT AND ORIENTED, DENIES PAIN, NOT IN DISTRESS, KEPT ON LOW BED, CALL LIGHT WITHIN REACH, NEEDS ATTENDED.
[2022-04-17 07:42] LABS: BASOPHILS % (AUTO) 0.1 % (0.0-2.0); HEMATOCRIT 32 % (33-45); HEMOGLOBIN 10.1 g/dL (11.5-14.8); LYMPHOCYTES # (AUTO) 0.6 K/uL (0.8-4.8); LYMPHOCYTES % (AUTO) 3.8 % (20.0-44.0); MEAN CORPUSCULAR HGB CONC 32 g/dl (31.0-36.0); MEAN CORPUSCULAR VOLUME 85 fL (82-100); MONOCYTES # (AUTO) 1.2 K/uL (0.1-1.30); MONOCYTES % (AUTO) 7.5 % (2.0-12.0); NEUTROPHILS # (AUTO) 13.7 K/uL (1.8-8.9); NEUTROPHILS % (AUTO) 88.6 % (43.0-81.0); PLATELET COUNT (AUTO) 598 K/uL (150-450); WHITE BLOOD COUNT (AUTO) 15.5 K/uL (4.3-11.0)
[2022-04-17] MEDS: BLOOD SUGAR DIAGNOSTIC 1 EACH STRIP IN SCH ×4 (08:16→21:45)
[2022-04-17] MEDS: GLUCERNA SHAKE 237 ML CAN PO SCH ×3 (08:16→18:10)
[2022-04-17] MEDS: methylPREDNISolone SOD SUCC 40 MG/ML VIAL IV SCH ×2 (09:00→18:12)
[2022-04-17] MEDS: PANTOPRAZOLE 40 MG TABLET.DR PO SCH (09:01)
[2022-04-17] MEDS: DILTIAZEM HCL CD 240 MG PO SCH (09:02)
[2022-04-17] MEDS: METOPROLOL TARTRATE 25 MG TABLET PO SCH ×2 (09:05→21:45)
[2022-04-17] MEDS ORDERED: K PHOS NEUTRAL 250 MG TABLET PO ONE (11:00)
[2022-04-17] MEDS ORDERED: diphenhydrAMINE HCL 25 MG CAPSULE PO PRN (11:00)
[2022-04-17 12:00] VITALS: BP 160/93
[2022-04-17] MEDS: DOCUSATE SODIUM 100 MG CAPSULE PO SCH (12:21)
[2022-04-17 16:00] VITALS: BP 118/74
--- NOTE | 2022-04-17 19:00 | NUR ---
NETTING INSPECTOR NOTES PT IN BED, RESTING, DENIES PAIN, NOT IN DISTRESS, NEW MIDLINE PLACED AT LEFT UPPER ARM, TOLERATED PROCEDURE WELL, ABLE TO EAT INDEPENDENTLY WITH SOME ASSISTANCE, PM MEDS GIVEN ORDERED, KEPT CLEAN, DRY AND COMFORTABLE.
--- NOTE | 2022-04-17 19:15 | NUR ---
JACK WINDER OPENING NOTES PT IN BED, AWAKE AT THIS TIME. A/O x3-4, AKHIOK L EAR. FAMILY AT BEDSIDE. ON O2 4L VIA NC WITH NO S/S OF SOB OR LABORED BREATHING. ON TELE MONITOR SHOWING AFIB WITH PVCs @ 88 BPM. IV FAUZIA MIDLINE #18G SL, PATENT AND INTACT. SAFETY PRECAUTIONS IN PLACE: BED LOCKED AND IN LOW POSITION; SIDE RAILS UP X2; CALL LIGHT AND TRAY TABLE WITHIN REACH. WILL CONTINUE TO MONITOR AND ASSIST.
[2022-04-17 20:00] VITALS: BP 121/91
[2022-04-17] MEDS: ATORVASTATIN 10 MG TABLET PO SCH (21:44)
[2022-04-17] MEDS: INSULIN REGULAR, HUMAN 100 UNIT/ML 3 ML VIAL SQ PRN (22:15)
[2022-04-18] VITALS: BP 142/98
[2022-04-18] MEDS: LEVALBUTEROL HCL NEB 1.25 MG/0.5 ML VIAL.NEB NEB SCH ×5 (02:15→19:30)
[2022-04-18] MEDS: IPRATROPIUM NEB FS 0.5 MG/2.5 ML AMPUL.NEB NEB SCH ×4 (02:15→19:30)
[2022-04-18 04:00] VITALS: BP 134/85
[2022-04-18] MEDS: CEFEPIME 2 GM in IV D5W 100 ML IV SCH ×3 (05:43→21:09)
[2022-04-18] MEDS: VANCOMYCIN 1 GM in IV D5W 250ml IV SCH ×2 (06:31→17:17)
[2022-04-18] MEDS: BLOOD SUGAR DIAGNOSTIC 1 EACH STRIP IN SCH ×4 (06:52→22:47)
[2022-04-18] MEDS: INSULIN REGULAR, HUMAN 100 UNIT/ML 3 ML VIAL SQ PRN ×2 (06:52→12:30)
[2022-04-18 07:03] LABS: BASOPHILS % (AUTO) 0.1 % (0.0-2.0); HEMATOCRIT 29 % (33-45); HEMOGLOBIN 9.5 g/dL (11.5-14.8); LYMPHOCYTES # (AUTO) 0.4 K/uL (0.8-4.8); MEAN CORPUSCULAR HGB CONC 33 g/dl (31.0-36.0); MEAN CORPUSCULAR VOLUME 84 fL (82-100); MONOCYTES # (AUTO) 0.5 K/uL (0.1-1.30); MONOCYTES % (AUTO) 4.2 % (2.0-12.0); NEUTROPHILS # (AUTO) 11.7 K/uL (1.8-8.9); NEUTROPHILS % (AUTO) 92.7 % (43.0-81.0); PLATELET COUNT (AUTO) 515 K/uL (150-450); RED BLOOD CELL COUNT(AUTO) 3.47 MIL/uL (4.0-5.2); WHITE BLOOD COUNT (AUTO) 12.6 K/uL (4.3-11.0)
--- NOTE | 2022-04-18 07:11 | NUR ---
ENVIRONMENTAL REMEDIATION CONSULTANT CLOSING NOTES PT IN BED, AWAKE AT THIS TIME. A/O x3-4, MI'KMAQ L EAR. UZBEK SPEAKING ONLY. STABLE ON O2 4L VIA NC WITH NO S/S OF SOB OR LABORED BREATHING. ON TELE MONITOR SHOWING AFIB, HR 91. IV FAUZIA MIDLINE #18G SL, PATENT AND INTACT. ALL CARE PROVIDED AND ADMINISTERED MEDICATIONS TOLERATED WELL. SAFETY PRECAUTIONS MAINTAINED: BED LOCKED AND IN LOW POSITION; SIDE RAILS UP X2; CALL LIGHT AND TRAY TABLE WITHIN REACH. WILL ENDORSE CYNTHIA TO BIODIESEL ENGINE SPECIALIST NURSE.
--- NOTE | 2022-04-18 07:25 | NUR ---
INDUSTRIAL AUTOMATION ENGINEER OPENING NOTES RECEIVED PT IN BED AWAKE , ROMANSH SPEAKING WITH SON LEARNING CONSULTANT VIA PHONE . A/O x3-4, [place] L EAR. STABLE ON O2 4L VIA NC WITH NO S/S OF SOB OR LABORED BREATHING. ON TELE MONITOR SHOWING SR @ 86 BPM. IV ACCESS FAUZIA ML #18G SL, PATENT AND INTACT. NO C/O OF PAIN AND DISCOMFORT . SLIGHT CONGESTION NOTED , HIGH ON BED AND KEPT COMFORTABLE IN BED WHILE EATING BREAKFAST . SAFETY PRECAUTIONS MAINTAINED: BED LOCKED AND IN LOWEST POSITION; SIDE RAILS UP X2; CALL LIGHT AND TRAY TABLE WITHIN REACH. WILL CONTINUE TO MONITOR
[2022-04-18 08:00] VITALS: BP 137/89
[2022-04-18] MEDS: methylPREDNISolone SOD SUCC 40 MG/ML VIAL IV SCH ×2 (08:18→17:06)
[2022-04-18] MEDS: PANTOPRAZOLE 40 MG TABLET.DR PO SCH (08:18)
[2022-04-18] MEDS: GLUCERNA SHAKE 237 ML CAN PO SCH ×3 (08:19→17:06)
[2022-04-18 08:38] LABS: CALCIUM, SERUM 8.2 mg/dL (8.5-10.1); CREATININE 0.6 mg/dL (0.6-1.3); MAGNESIUM 1.8 mg/dL (1.8-2.4); PHOSPHORUS 2.5 mg/dL (2.5-4.9); POTASSIUM 4.3 mmol/L (3.5-5.1)
[2022-04-18] MEDS: DILTIAZEM HCL CD 240 MG PO SCH (08:59)
[2022-04-18] MEDS: ENOXAPARIN SODIUM 60 MG/0.6 ML DISP.SYRIN SQ SCH ×2 (09:00→21:45)
[2022-04-18] MEDS: METOPROLOL TARTRATE 25 MG TABLET PO SCH ×2 (10:07→22:15)
[2022-04-18 12:00] VITALS: BP 138/95
[2022-04-18] MEDS: DOCUSATE SODIUM 100 MG CAPSULE PO SCH (13:33)
[2022-04-18] MEDS: FUROSEMIDE 40 MG/4 ML VIAL IV SCH ×3 (13:51→22:05)
[2022-04-18] MEDS ORDERED: ANESTHESIA TRAY IN PYXIS 1 EA TRAY MC ONE (14:55)
[2022-04-18 16:00] VITALS: BP 141/98
--- NOTE | 2022-04-18 18:44 | NUR ---
WAX BALL MOLDER CLOSING NOTES RECEIVED PT IN BED AWAKE , [place] SPEAKING WITH SON GOVERNMENT PROPERTY INSPECTOR AT BEDSIDE . A/O x3-4, [place] L EAR. STABLE ON O2 4L VIA NC WITH HUMIDIFIER AND WITH NO S/S OF SOB OR LABORED BREATHING. ON TELE MONITOR SHOWING AFIB @ 102 BPM. IV ACCESS FAUZIA ML #18G SL, PATENT AND INTACT. ALL DUE MEDS ORDERED , PATIENT FOR POSSIBLE EGD TOMORROW , CONSENT FOR PROCEDURE SIGNED AND FOR BLOOD TRANSFUSION , ANESTHESIA CONSENT NOT SIGNED PER SON THEY WANTED TO KNOW FIRST WHAT ANESTHESIA IS GIVEN , PER FAMILY THEY DONT LIKE GENERAL ANESTHESIA NO C/O OF PAIN AND DISCOMFORT . ALL DUE MEDS GIVEN ORDERED , CONGESTION AND WHEEZING NOTED AND BREATHING TREATMENT ORDERED AND LASIX IV Q 4 HOURS GIVEN ORDERED , KEPT DRY AND CLEAN . HOB AT ALL TIMES , SAFETY PRECAUTIONS MAINTAINED: BED LOCKED AND IN LOWEST POSITION; SIDE RAILS UP X2; CALL LIGHT AND TRAY TABLE WITHIN REACH. ALL NEEDS ATTENDED AND WILL ENDORSED TO NEXT SHIFT
--- NOTE | 2022-04-18 19:45 | NUR ---
communication studies professor Opening Note Received patient in bed; awake, alert and oriented x 3. Belizean speaking. 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 On O2 inhalation @ 4 lpm; tolerating well sating @ 94%. No s/s of respiratory distress. On telemetry monitoring which reads Atrial Fibrillation; uncontrolled HR-106 bpm. With midline @ left upper arm 18g; patent and intact. Safety precautions implemented: call light and table within reach, head of bed elevated, side rails up x 2, bed in lowest locked position. Will continue plan of care.
[2022-04-18 20:00] VITALS: BP 147/82
--- NOTE | 2022-04-18 21:30 | NUR ---
RN Note The patient requested to put her left upper side rail down. Patient's son and granddaughter called also to tell us to put the patient's left upper side rail down. Per patient's granddaughter, the left upper side rail has always been placed down ever since patient was admitted. Explained to the family members the risk/harm of not placing the side rails up. Family members still insisting to put the left upper side rail down.
[2022-04-18] MEDS: ATORVASTATIN 10 MG TABLET PO SCH (22:05)
[2022-04-19] VITALS: BP 145/78
[2022-04-19] MEDS: LEVALBUTEROL HCL NEB 1.25 MG/0.5 ML VIAL.NEB NEB SCH ×7 (00:10→23:50)
[2022-04-19] MEDS: IPRATROPIUM NEB FS 0.5 MG/2.5 ML AMPUL.NEB NEB SCH ×4 (01:30→20:26)
[2022-04-19 04:00] VITALS: BP 144/88
[2022-04-19 05:00] VITALS: BP 141/88
[2022-04-19] MEDS: CEFEPIME 2 GM in IV D5W 100 ML IV SCH ×3 (05:22→21:01)
[2022-04-19] MEDS: VANCOMYCIN 1 GM in IV D5W 250ml IV SCH (06:03)
[2022-04-19] MEDS: BLOOD SUGAR DIAGNOSTIC 1 EACH STRIP IN SCH ×4 (06:24→21:56)
[2022-04-19 06:59] LABS: HEMATOCRIT 31 % (33-45); HEMOGLOBIN 10.5 g/dL (11.5-14.8); LYMPHOCYTES # (AUTO) 0.5 K/uL (0.8-4.8); LYMPHOCYTES % (AUTO) 3.4 % (20.0-44.0); MEAN CORPUSCULAR HGB CONC 34 g/dl (31.0-36.0); MEAN CORPUSCULAR VOLUME 83 fL (82-100); MONOCYTES % (AUTO) 7.8 % (2.0-12.0); NEUTROPHILS % (AUTO) 88.8 % (43.0-81.0); PLATELET COUNT (AUTO) 580 K/uL (150-450); RED BLOOD CELL COUNT(AUTO) 3.76 MIL/uL (4.0-5.2); WHITE BLOOD COUNT (AUTO) 13.5 K/uL (4.3-11.0)
--- NOTE | 2022-04-19 07:05 | NUR ---
senior payroll specialist Closing Note Patient in bed; awake, a/o x 3. Slovak speaking. 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 On O2 inhalation @ 4 lpm; tolerating well satting @ 95%. No s/s of respiratory distress. On telemetry monitoring which reads Atrial Fibrillation; uncontrolled HR-107 bpm. With midline @ left upper arm 18g; patent and intact. Safety precautions maintained: call light and table within reach, head of bed elevated, side rails up x 2, bed in lowest locked position. Endorsed to morning shift for rudy.
[2022-04-19] MEDS: PANTOPRAZOLE 40 MG TABLET.DR PO SCH (07:30)
--- NOTE | 2022-04-19 07:30 | NUR ---
TEST RIDER OPENING NOTES RECEIVED PATIENT IN BED AWAKE , A/O TIMES 4 , ZIMBABWEAN SPEAKER . MARY ANN Vasques EAR. STABLE ON O2 4L VIA NC WITH NO S/S OF SOB OR LABORED BREATHING. ON TELE MONITOR SHOWING SR . IV ACCESS FAUZIA ML #18G SL, PATENT AND INTACT. NO C/O OF PAIN AND DISCOMFORT . HOB ELEVATED . SAFETY PRECAUTIONS MAINTAINED: BED LOCKED AND IN LOWEST POSITION; SIDE RAILS UP X2; CALL LIGHT AND TRAY TABLE WITHIN REACH. WILL CONTINUE TO MONITOR
[2022-04-19 07:40] LABS: CALCIUM, SERUM 8.1 mg/dL (8.5-10.1); CHLORIDE 81 mmol/L (98-107); CREATININE 0.8 mg/dL (0.6-1.3); GLUCOSE 166 mg/dL (74-106); MAGNESIUM 2.3 mg/dL (1.8-2.4); PHOSPHORUS 3.2 mg/dL (2.5-4.9); POTASSIUM 3.1 mmol/L (3.5-5.1); SODIUM SERUM 126 mmol/L (136-145); UREA NITROGEN, BLOOD 32 mg/dL (7-18)
[2022-04-19 07:58] LABS: CARBON DIOXIDE 43 mmol/L (21-32)
[2022-04-19 08:00] VITALS: BP 151/98
--- NOTE | 2022-04-19 08:00 | NUR ---
RN NOTES CRITICAL LAB AT 0800 CO2 43. REPORTED TO CELIO SEGAL. AT 0809. NO NEW ORDER WAS GIVEN.
[2022-04-19] MEDS ORDERED: METOPROLOL TARTRATE 25 MG TABLET PO SCH (09:00)
[2022-04-19] MEDS: methylPREDNISolone SOD SUCC 40 MG/ML VIAL IV SCH ×2 (09:50→16:49)
[2022-04-19] MEDS: DILTIAZEM HCL CD 240 MG PO SCH (09:50)
[2022-04-19] MEDS: GLUCERNA SHAKE 237 ML CAN PO SCH ×3 (09:51→17:25)
[2022-04-19] MEDS: ENOXAPARIN SODIUM 60 MG/0.6 ML DISP.SYRIN SQ SCH ×2 (09:55→21:08)
[2022-04-19] MEDS: DOXYCYCLINE HYCLATE (100 MG) 100 MG TABLET PO SCH ×2 (11:07→21:07)
[2022-04-19] MEDS ORDERED: POTASSIUM CHLORIDE 20 MEQ TAB.PRT.SR PO ONE (12:00)
[2022-04-19] MEDS: DOCUSATE SODIUM 100 MG CAPSULE PO SCH (13:12)
[2022-04-19 16:00] VITALS: BP 109/79
[2022-04-19] MEDS: SODIUM CHLORIDE 1000 MG TABLET PO SCH (18:06)
[2022-04-19] MEDS: METOPROLOL TARTRATE 25 MG TABLET PO SCH ×2 (18:07→23:56)
--- NOTE | 2022-04-19 19:03 | NUR ---
RN NOTES: RECEIVED AWAKE ON BED, ON SEMI FOWLERS POSITION, A/OX3. IRISH SPEAKING,WITH O2 AT 3-4l/MIN VIA NC, ON TELE MONITOR A.FIB UNCONTROLLED 100, INCONTINENT B/B, FAUZIA FUENTES INTATC AND PATENT, SALINE LOCK ONLY, ABLE TO TAKE WHOLE PILL, , ON SLIDING SCALE, K AND Na REPLACED IN THE MORNING, SOME LAB RESULTS TO BE F/U, NON LABORED BREATHING, NO FACIAL GRIMACE, ORIENTED TO UNIT AND STAFF, KEPT CALL LIGHT WITHIN EASY REACH.
--- NOTE | 2022-04-19 19:30 | NUR ---
RN NOTES SON REFUSING INSULIN FOR 0900 AM AND FOR 1700. EXPLAINED THE BENEFITS AND USE OF THAT BUT STILL REFUSING. RESPECT PATIENT'S RIGHTS.
--- NOTE | 2022-04-19 19:38 | NUR ---
DAM WORKER CLOSING NOTES PATIENT IN BED AWAKE , A/O TIMES 4 , SAUDI ARABIAN SPEAKER . [place]K L EAR. STABLE ON O2 4L VIA NC WITH NO S/S OF SOB OR LABORED BREATHING. ON TELE MONITOR SHOWING SR . IV ACCESS FAUZIA ML #18G SL, PATENT AND INTACT. NO C/O OF PAIN AND DISCOMFORT . HOB ELEVATED . ALL DUE MEDS GIVEN ORDERED. TOOK LAB SAMPLES OF RSV, INFLUENZA AND URINE TO THE LAB. ALL SAFETY PRECAUTIONS MAINTAINED: BED LOCKED AND IN LOWEST POSITION; SIDE RAILS UP X2; CALL LIGHT AND TRAY TABLE WITHIN REACH. WILL ENDORSE FOR CYNTHIA.
[2022-04-19 20:00] VITALS: BP 122/81
--- NOTE | 2022-04-19 20:07 | NUR ---
RN NOTES: GRANDSON CAME TO VISIT, F/U IN THE rt DEPARTMENT NEBULIZATION, NOTED OCCASIONAL COUGH,CONVERSANT, SAFETY PRECAUTION OBSERVED.
[2022-04-19] MEDS: ATORVASTATIN 10 MG TABLET PO SCH (21:07)
--- NOTE | 2022-04-19 21:30 | NUR ---
RN NOTES: ON CLOSE VISUAL CHECK, GIVEN DUE MEDICATION, COOPERATIVE TO CARE, ASLEEP IN BETWEEN.
[2022-04-19] MEDS: INSULIN REGULAR, HUMAN 100 UNIT/ML 3 ML VIAL SQ PRN (21:58)
--- NOTE | 2022-04-19 22:02 | NUR ---
RN NOTES: EXPLAINED WE NEED TO CHECK HER BLOOD SUGAR, SHE UNDERSTAND AND SHE AGREED, BS-182, INSULIN GIVEN PER SCALE, COOPERATIVE.
[2022-04-20] VITALS: BP 120/76
[2022-04-20] MEDS: IPRATROPIUM NEB FS 0.5 MG/2.5 ML AMPUL.NEB NEB SCH ×4 (00:35→20:23)
--- NOTE | 2022-04-20 00:59 | NUR ---
RN NOTES: -SHE PEE, CLEAN AND CHANGE, NEBULIZATION RENDERED BY RT, ORAL MEDS GIVEN, COOPERATIVE.
[2022-04-20] MEDS: LEVALBUTEROL HCL NEB 1.25 MG/0.5 ML VIAL.NEB NEB SCH ×5 (03:56→20:23)
[2022-04-20 04:00] VITALS: BP 115/74
[2022-04-20] MEDS: CEFEPIME 2 GM in IV D5W 100 ML IV SCH ×2 (04:17→20:13)
[2022-04-20] MEDS: METOPROLOL TARTRATE 25 MG TABLET PO SCH ×3 (05:10→17:11)
--- NOTE | 2022-04-20 05:51 | NUR ---
RN NOTES: ABLE TO SLEEP AND REST, CHECK AT FREQUENT INTERVALS, MORNING CARE DONE, NO RESISTANCE TO CARE,DUE MEDS TAKEN, REPOSITIONED.
[2022-04-20 06:23] LABS: BASOPHILS % (AUTO) 0.1 % (0.0-2.0); HEMATOCRIT 30 % (33-45); LYMPHOCYTES # (AUTO) 0.4 K/uL (0.8-4.8); MEAN CORPUSCULAR HGB CONC 33 g/dl (31.0-36.0); MEAN CORPUSCULAR VOLUME 84 fL (82-100); MONOCYTES # (AUTO) 1.1 K/uL (0.1-1.30); MONOCYTES % (AUTO) 5.6 % (2.0-12.0); NEUTROPHILS # (AUTO) 18.8 K/uL (1.8-8.9); NEUTROPHILS % (AUTO) 92.3 % (43.0-81.0); PLATELET COUNT (AUTO) 494 K/uL (150-450); RED BLOOD CELL COUNT(AUTO) 3.63 MIL/uL (4.0-5.2); WHITE BLOOD COUNT (AUTO) 20.3 K/uL (4.3-11.0)
--- NOTE | 2022-04-20 06:31 | NUR ---
RN NOTES: TAKING A NAP, BLOOD SUGAR =130,ON SINUS RHYTHMS=79, NO PAIN OR DISOCMFORT, STILL WITH OCCASIONAL COUGH ABLE TO EXPECTORATE PHLEGN, CONTINUE HHN ORDERED, NON LABORED BREATHING, MILD WHEEZING NOTED, NO SOB, PASS LARGE AMOUNT OF URINE , CHANGE 2X, NO BM, FOR LABS THIS MORNING. ENDORSED FOR CONTINUITY OF CARE. Addendum: 04/20/22 at 0634 by KARINE TOMAS RN CORRECTION: BLOOD SUGAR IS 131.
[2022-04-20 06:56] LABS: CALCIUM, SERUM 8.5 mg/dL (8.5-10.1); CREATININE 0.8 mg/dL (0.6-1.3); MAGNESIUM 2.3 mg/dL (1.8-2.4); PHOSPHORUS 2.7 mg/dL (2.5-4.9); POTASSIUM 4.5 mmol/L (3.5-5.1)
--- NOTE | 2022-04-20 07:08 | NUR ---
DETECTIVE HOMICIDE SQUAD OPENING NOTES RECEIVED PATIENT AWAKE IN BED, A/Ox2-3, KHMER SPEAKING, [place] ON LEFT SIDE. ON 4L NC, NO S/S OF RESPIRATORY DISTRESS. ON TELE MONITORING SHOWING A-FIB WITH PVCs HR 84. IV ACCES FAUZIA MIDLINE. INTACT AND PATENT. INCONTINENT. SKIN ISSUES: R HEEL REDNESS, FAUZIA BRUISE, L INDEX FINGER SCAR, SACRAL REDNESS. SAFETY MEASURES IN PLACE: BED LOCKED AND IN LOWEST POSITION, SIDE RAILS UPx2, CALL LIGHT WITHIN REACH, HOB ELEVATED. WILL CONTINUE TO MONITOR.
[2022-04-20 08:02] VITALS: BP 132/66
[2022-04-20] MEDS: DOXYCYCLINE HYCLATE (100 MG) 100 MG TABLET PO SCH ×2 (08:30→20:35)
[2022-04-20] MEDS: PANTOPRAZOLE 40 MG TABLET.DR PO SCH (08:30)
[2022-04-20] MEDS: methylPREDNISolone SOD SUCC 40 MG/ML VIAL IV SCH ×2 (08:30→17:11)
[2022-04-20] MEDS: SODIUM CHLORIDE 1000 MG TABLET PO SCH (08:30)
[2022-04-20] MEDS: BLOOD SUGAR DIAGNOSTIC 1 EACH STRIP IN SCH ×4 (08:30→21:18)
[2022-04-20] MEDS: DILTIAZEM HCL CD 240 MG PO SCH (08:31)
[2022-04-20] MEDS: ENOXAPARIN SODIUM 60 MG/0.6 ML DISP.SYRIN SQ SCH (08:43)
[2022-04-20] MEDS: GLUCERNA SHAKE 237 ML CAN PO SCH ×3 (08:45→17:21)
[2022-04-20] MEDS: DOCUSATE SODIUM 100 MG CAPSULE PO SCH (12:14)
[2022-04-20] MEDS: INSULIN REGULAR, HUMAN 100 UNIT/ML 3 ML VIAL SQ PRN ×3 (12:14→21:22)
--- NOTE | 2022-04-20 15:00 | NUR ---
RN NOTES PATIENT WALKED WITH CHARGE NURSE, TOLERATED WELL, WILL CONTINUE TO MONITOR.
[2022-04-20 15:44] VITALS: BP 138/82
--- NOTE | 2022-04-20 18:36 | NUR ---
CORE MEASURES ABSTRACTOR CLOSING NOTES PATIENT AWAKE IN BED, A/Ox2-3, BENGALI SPEAKING, OHKAY OWINGEH ON LEFT SIDE. ON 2L NC, NO S/S OF RESPIRATORY DISTRESS. ON TELE MONITORING SHOWING A-FIB WITH PVCs HR 92. IV ACCES FAUZIA MIDLINE. INTACT AND PATENT. INCONTINENT. SKIN ISSUES: R HEEL REDNESS, FAUZIA BRUISE, L INDEX FINGER SCAR, SACRAL REDNESS. SAFETY MEASURES MAINTAINED: BED LOCKED AND IN LOWEST POSITION, SIDE RAILS UPx2, CALL LIGHT WITHIN REACH, HOB ELEVATED. WILL ENDORSE TO NEXT SHIFT ANY CYNTHIA.
[2022-04-20 20:00] VITALS: BP 118/80
--- NOTE | 2022-04-20 20:00 | NUR ---
RECEIVED PATIENT IN BED, ALERT/ORIENTED X3. 2LPM VIA NC, SPO2 95%, BELARUSIAN SPEAKING ONLY, ANXIOUS, NO COMPLAIN OF PAIN, FAUZIA MIDLINE, FAUZIA ECCHYMOSIS, INCONTINENT OF BOWEL AND BLADDER, GENERALIZED WEAKNESS, KEPT SAFE, WILL CONTINUE TO MONITOR.
[2022-04-20] MEDS: APIXABAN 2.5 MG TABLET PO SCH (20:35)
[2022-04-20] MEDS: ATORVASTATIN 10 MG TABLET PO SCH (21:01)
[2022-04-21] VITALS: BP 118/89
[2022-04-21] MEDS: LEVALBUTEROL HCL NEB 1.25 MG/0.5 ML VIAL.NEB NEB SCH ×7 (00:07→23:44)
[2022-04-21] MEDS: METOPROLOL TARTRATE 25 MG TABLET PO SCH ×4 (00:14→17:25)
[2022-04-21] MEDS: IPRATROPIUM NEB FS 0.5 MG/2.5 ML AMPUL.NEB NEB SCH ×4 (02:02→20:05)
[2022-04-21 04:00] VITALS: BP 129/94
[2022-04-21] MEDS: BLOOD SUGAR DIAGNOSTIC 1 EACH STRIP IN SCH ×4 (06:32→22:24)
--- NOTE | 2022-04-21 06:32 | NUR ---
BG 128 NO INSULIN COVERAGE
[2022-04-21] MEDS: INSULIN REGULAR, HUMAN 100 UNIT/ML 3 ML VIAL SQ PRN ×5 (06:33→22:40)
--- NOTE | 2022-04-21 06:36 | NUR ---
ALERT/ORIENTED X3, STABLE ON 2LPM VIA NC, BREATHING TREATMENT SCHEDULED, ANXIOUS, AFIB ON THE TELE, FAUZIA MIDLINE HL ONLY, UP ON CHAIR DURING MEALS, RESPIRATORY PATHOGEN SWAB PENDING RESULTS, THEN ID CONSULT. CONTINUE MAXIPIME, SOLUMEDROL AND VIBRAMYCIN. REMIND PATIENT ON DISCHARGE TO FOLLOW UP IN [address] CHEST. KEPT SAFE, VS STABLE, AFEBRILE.
[2022-04-21 06:50] LABS: BASOPHILS % (AUTO) 0.2 % (0.0-2.0); HEMATOCRIT 30 % (33-45); HEMOGLOBIN 9.8 g/dL (11.5-14.8); LYMPHOCYTES # (AUTO) 0.4 K/uL (0.8-4.8); MEAN CORPUSCULAR HGB CONC 33 g/dl (31.0-36.0); MEAN CORPUSCULAR VOLUME 84 fL (82-100); MONOCYTES # (AUTO) 0.6 K/uL (0.1-1.30); MONOCYTES % (AUTO) 3.1 % (2.0-12.0); NEUTROPHILS # (AUTO) 19.2 K/uL (1.8-8.9); NEUTROPHILS % (AUTO) 94.7 % (43.0-81.0); PLATELET COUNT (AUTO) 494 K/uL (150-450); RED BLOOD CELL COUNT(AUTO) 3.53 MIL/uL (4.0-5.2); WHITE BLOOD COUNT (AUTO) 20.3 K/uL (4.3-11.0)
[2022-04-21 07:00] VITALS: BP 142/104
--- NOTE | 2022-04-21 07:05 | NUR ---
WEB DEVELOPMENT DIRECTOR OPENING NOTES RECEIVED PATIENT AWAKE IN BED, A/Ox2-3, [place] SPEAKING, [place] ON LEFT SIDE. ON 2L NC, NO S/S OF RESPIRATORY DISTRESS. ON TELE MONITORING SHOWING A-FIB WITH PVCs HR 78. IV ACCES FAUZIA MIDLINE. INTACT AND PATENT. INCONTINENT. SKIN ISSUES: R HEEL REDNESS, FAUZIA BRUISE, L INDEX FINGER SCAR, SACRAL REDNESS. SAFETY MEASURES IN PLACE: BED LOCKED AND IN LOWEST POSITION, SIDE RAILS UPx2, CALL LIGHT WITHIN REACH, HOB ELEVATED. WILL CONTINUE TO MONITOR.
[2022-04-21 07:56] LABS: CALCIUM, SERUM 8.6 mg/dL (8.5-10.1); CREATININE 0.8 mg/dL (0.6-1.3); POTASSIUM 4.6 mmol/L (3.5-5.1)
[2022-04-21] MEDS: PANTOPRAZOLE 40 MG TABLET.DR PO SCH (08:45)
[2022-04-21] MEDS: DOXYCYCLINE HYCLATE (100 MG) 100 MG TABLET PO SCH ×2 (08:46→21:16)
[2022-04-21] MEDS: DILTIAZEM HCL CD 240 MG PO SCH (08:46)
[2022-04-21] MEDS: GLUCERNA SHAKE 237 ML CAN PO SCH ×3 (08:46→17:20)
[2022-04-21] MEDS: methylPREDNISolone SOD SUCC 40 MG/ML VIAL IV SCH ×2 (08:47→17:19)
[2022-04-21] MEDS: CEFEPIME 2 GM in IV D5W 100 ML IV SCH ×2 (08:47→21:16)
[2022-04-21] MEDS: APIXABAN 2.5 MG TABLET PO SCH ×2 (08:47→21:18)
[2022-04-21] MEDS: SODIUM CHLORIDE 1000 MG TABLET PO SCH (08:47)
[2022-04-21 12:00] VITALS: BP 135/87
--- NOTE | 2022-04-21 12:00 | NUR ---
RN NOTES SON AT BEDSIDES, PATIENT IS EATING LUNCH. NO S/S OF DISTRESS NOTED.
[2022-04-21] MEDS: DOCUSATE SODIUM 100 MG CAPSULE PO SCH (12:25)
[2022-04-21 16:00] VITALS: BP 149/90
--- NOTE | 2022-04-21 18:52 | NUR ---
CIRCULATION SUPERVISOR CLOSING NOTES PATIENT AWAKE IN BED, A/Ox2-3, [place] SPEAKING, [place] ON LEFT SIDE. STABLE ON 2L NC, NO S/S OF RESPIRATORY DISTRESS. ON TELE MONITORING SHOWING A-FIB CONTROLLED HR 79. IV ACCES FAUZIA MIDLINE. INTACT AND PATENT. INCONTINENT. SKIN ISSUES: R HEEL REDNESS, FAUZIA BRUISE, L INDEX FINGER SCAR, SACRAL REDNESS. SAFETY MEASURES MAINTAINED: BED LOCKED AND IN LOWEST POSITION, SIDE RAILS UPx2, CALL LIGHT WITHIN REACH, HOB ELEVATED. WILL ENDORSE TO NEXT SHIFT ANY CYNTHIA.
--- NOTE | 2022-04-21 19:15 | NUR ---
TOW MOTOR DRIVER OPENING NOTES RECEIVED PT AWAKE, SITTING IN CHAIR AT THIS TIME. A/Ox2-3, [place] SPEAKING, [place] TRIBE ON LEFT SIDE. ON O2 2L VIA NC WITH NO S/S OF RESPIRATORY DISTRESS. ON TELE MONITORING SHOWING CONTROLLED A-FIB, HR 85. IV ACCES FAUZIA MIDLINE. INTACT AND PATENT. INCONTINENT. SKIN ISSUES: R HEEL REDNESS, FA[place]IA BRUISE, L INDEX FINGER SCAR, SACRAL REDNESS. SAFETY MEASURES IN PLACE: BED LOCKED AND IN LOWEST POSITION, SIDE RAILS UP x2, CALL LIGHT WITHIN REACH, HOB ELEVATED. WILL CONTINUE TO MONITOR AND ASSIST.
[2022-04-21 20:00] VITALS: BP 118/77
[2022-04-21] MEDS: ATORVASTATIN 10 MG TABLET PO SCH (21:17)
[2022-04-22] VITALS: BP 138/86
[2022-04-22] MEDS: METOPROLOL TARTRATE 25 MG TABLET PO SCH ×4 (00:08→17:10)
[2022-04-22] MEDS: IPRATROPIUM NEB FS 0.5 MG/2.5 ML AMPUL.NEB NEB SCH ×4 (02:08→20:31)
[2022-04-22] MEDS: LEVALBUTEROL HCL NEB 1.25 MG/0.5 ML VIAL.NEB NEB SCH ×5 (04:51→20:31)
[2022-04-22 05:00] VITALS: BP 150/92
[2022-04-22 06:09] LABS: HEMATOCRIT 31 % (33-45); HEMOGLOBIN 9.8 g/dL (11.5-14.8); LYMPHOCYTES # (AUTO) 0.4 K/uL (0.8-4.8); MEAN CORPUSCULAR HGB CONC 32 g/dl (31.0-36.0); MEAN CORPUSCULAR VOLUME 85 fL (82-100); MONOCYTES % (AUTO) 5.6 % (2.0-12.0); NEUTROPHILS # (AUTO) 15.9 K/uL (1.8-8.9); NEUTROPHILS % (AUTO) 92.4 % (43.0-81.0); PLATELET COUNT (AUTO) 437 K/uL (150-450); RED BLOOD CELL COUNT(AUTO) 3.62 MIL/uL (4.0-5.2); WHITE BLOOD COUNT (AUTO) 17.2 K/uL (4.3-11.0)
[2022-04-22] MEDS: BLOOD SUGAR DIAGNOSTIC 1 EACH STRIP IN SCH ×4 (06:54→21:14)
--- NOTE | 2022-04-22 06:55 | NUR ---
RN NOTES PATIENT REFUSED PRESCRIBED METOPROLOL 50 MG AND ACCUCHECK THIS AM. EXPLAINED RISK/BENEFITS. PT VERBALIZED UNDERSTANDING.
[2022-04-22 06:58] LABS: CALCIUM, SERUM 8.3 mg/dL (8.5-10.1); CREATININE 0.7 mg/dL (0.6-1.3); MAGNESIUM 1.9 mg/dL (1.8-2.4); PHOSPHORUS 2.8 mg/dL (2.5-4.9); POTASSIUM 4.1 mmol/L (3.5-5.1)
--- NOTE | 2022-04-22 07:15 | NUR ---
NUCLEAR CRITICALITY SAFETY ENGINEER CLOSING NOTES PT SLEEPING IN BED AT THIS TIME, IN NO ACUTE SIGN SOF DISTRESS. A/Ox2-3, LAO SPEAKING, [place] ON LEFT SIDE, DENIES PAIN OR ANY DISCOMFORTS AT THIS TIME. ON O2 2L VIA NC WITH NO S/S OF RESPIRATORY DISTRESS. ON TELE MONITORING SHOWING CONTROLLED A-FIB, HR 96. FAUZIA MIDLINE INTACT, PATENT FLUSHES WELL. SAFETY MEASURES IN PLACE: BED LOCKED AND IN LOWEST POSITION, SIDE RAILS UP x2, CALL LIGHT WITHIN REACH, HOB ELEVATED. WILL ENDORSE CYNTHIA TO WATER MAIN INSPECTOR NURSE.
--- NOTE | 2022-04-22 07:22 | NUR ---
RETOUCHER OPENING NOTES RECEIVED PT AWAKE IN BED IN NO ACUTE SIGN SOF DISTRESS. A/Ox2-3, [place]OL[place] SPEAKING, [place] ON LEFT SIDE, DENIES PAIN OR ANY DISCOMFORTS AT THIS TIME. ON O2 2L VIA NC WITH NO S/S OF RESPIRATORY DISTRESS. ON TELE MONITORING SHOWING CONTROLLED A-FIB, HR 96. FAUZIA MIDLINE INTACT, PATENT FLUSHES WELL. SAFETY MEASURES IN PLACE: BED LOCKED AND IN LOWEST POSITION, SIDE RAILS UP x2, CALL LIGHT WITHIN REACH, HOB ELEVATED. WILL CONTINUE TO MONITOR PT ACCORDINGLY.
[2022-04-22 08:00] VITALS: BP 139/85
[2022-04-22] MEDS: PANTOPRAZOLE 40 MG TABLET.DR PO SCH (08:12)
[2022-04-22] MEDS: GLUCERNA SHAKE 237 ML CAN PO SCH ×3 (08:12→17:07)
[2022-04-22] MEDS: DOXYCYCLINE HYCLATE (100 MG) 100 MG TABLET PO SCH ×2 (08:13→21:07)
[2022-04-22] MEDS: SODIUM CHLORIDE 1000 MG TABLET PO SCH (08:13)
[2022-04-22] MEDS: methylPREDNISolone SOD SUCC 40 MG/ML VIAL IV SCH ×2 (08:13→16:14)
[2022-04-22] MEDS: APIXABAN 2.5 MG TABLET PO SCH ×2 (08:14→21:09)
[2022-04-22] MEDS: DILTIAZEM HCL CD 240 MG PO SCH (08:15)
[2022-04-22] MEDS: CEFEPIME 2 GM in IV D5W 100 ML IV SCH ×2 (09:04→21:10)
--- NOTE | 2022-04-22 10:01 | NUR ---
WOUND CARE CONSULT: PT SEEN FOR RASH TO BUTTOCKS AND GROIN FOLDS. SON, AT BEDSIDE STATES THAT HE HAS BEEN DIAPERING HIS MOTHER. DISCUSSED NEED FOR REMOVING DIAPER IN ORDER TO TREAT RASH AND THAT WILL ONLY USE DIAPER FOR AMBULATING IN [place]. OTHERWISE WILL USE PURE WICK SYSTEM TO KEEP HER CLEAN AND DRY. PT 'S SON STATED UNDERSTANDING. DISCUSSED WITH NURSING STAFF AND HOTEL SUPERINTENDENT. IN AGREEMENT WITH PLAN OF CARE.
[2022-04-22] MEDS: INSULIN REGULAR, HUMAN 100 UNIT/ML 3 ML VIAL SQ PRN ×3 (11:50→21:16)
[2022-04-22] MEDS: DOCUSATE SODIUM 100 MG CAPSULE PO SCH (13:30)
[2022-04-22] MEDS: FLUCONAZOLE (100 MG) 100 MG TABLET PO SCH (14:21)
[2022-04-22 16:00] VITALS: BP 128/86
[2022-04-22] MEDS: CLOTRIMAZOLE 1% 15 GM TUBE TP SCH (16:14)
--- NOTE | 2022-04-22 19:02 | NUR ---
MS RN CLOSING NOTES PT WALKING WITH FWW ASSISTED BY SON AT THIS TIME. A/Ox2-3, CROAT[place] SPEAKING, [place] ON LEFT SIDE. ON O2 2L VIA NC WITH NO S/S OF RESPIRATORY DISTRESS. FAUZIA MIDLINE INTACT, PATENT FLUSHES WELL. ALL NEEDS AND CARE PROVIDED WELL. SAFETY MEASURES IN PLACE: BED LOCKED AND IN LOWEST POSITION, SIDE RAILS UP x2, CALL LIGHT WITHIN REACH, HOB ELEVATED. WILL ENDORSE CYNTHIA TO EMERGENCY DEPARTMENT PHYSICIAN NURSE.
--- NOTE | 2022-04-22 19:30 | NUR ---
MS RN OPENING NOTE RECEIVED PT AWAKE IN CHAIR. SON AT BEDSIDE. PT STABLE ON O2 @ 2LPM VIA NC, TOLERATING WELL. NO SOB OR S/S OF RESPIRATORY DISTRESS. BREATHING EVEN AND UNLABORED. IV ACCESS FAUZIA ML SL, INTACT AND PATENT. SAFETY PRECAUTIONS IN PLACE. CALL LIGHT AND TABLE WITHIN REACH, INFORMED TO USE CALL LIGHT WHEN READY TO RETURN TO BED. ALL NEEDS MET AT THIS TIME.
[2022-04-22 20:00] VITALS: BP 142/97
[2022-04-22] MEDS: ATORVASTATIN 10 MG TABLET PO SCH (21:07)
[2022-04-23] MEDS: LEVALBUTEROL HCL NEB 1.25 MG/0.5 ML VIAL.NEB NEB SCH ×6 (00:09→20:15)
[2022-04-23] MEDS: METOPROLOL TARTRATE 25 MG TABLET PO SCH ×6 (00:27→23:55)
[2022-04-23] MEDS: IPRATROPIUM NEB FS 0.5 MG/2.5 ML AMPUL.NEB NEB SCH ×4 (01:51→20:15)
[2022-04-23 06:20] LABS: CARBON DIOXIDE 29 mmol/L (21-32); CHLORIDE 87 mmol/L (98-107); CREATININE 0.7 mg/dL (0.6-1.3); GLUCOSE 128 mg/dL (74-106); MAGNESIUM 1.7 mg/dL (1.8-2.4); PHOSPHORUS 3.4 mg/dL (2.5-4.9); POTASSIUM 4.3 mmol/L (3.5-5.1); SODIUM SERUM 124 mmol/L (136-145); UREA NITROGEN, BLOOD 39 mg/dL (7-18)
[2022-04-23 06:23] LABS: HEMATOCRIT 28 % (33-45); HEMOGLOBIN 9.1 g/dL (11.5-14.8); LYMPHOCYTES # (AUTO) 0.4 K/uL (0.8-4.8); LYMPHOCYTES % (AUTO) 2.8 % (20.0-44.0); MEAN CORPUSCULAR HGB CONC 32 g/dl (31.0-36.0); MEAN CORPUSCULAR VOLUME 84 fL (82-100); MONOCYTES # (AUTO) 0.8 K/uL (0.1-1.30); NEUTROPHILS # (AUTO) 14.1 K/uL (1.8-8.9); NEUTROPHILS % (AUTO) 92.2 % (43.0-81.0); PLATELET COUNT (AUTO) 416 K/uL (150-450); RED BLOOD CELL COUNT(AUTO) 3.34 MIL/uL (4.0-5.2); WHITE BLOOD COUNT (AUTO) 15.3 K/uL (4.3-11.0)
[2022-04-23] MEDS: BLOOD SUGAR DIAGNOSTIC 1 EACH STRIP IN SCH ×4 (06:43→22:26)
--- NOTE | 2022-04-23 06:43 | NUR ---
MS RN CLOSING NOTE PT AWAKE IN BED. PT STABLE ON O2 @ 2LPM VIA NC, TOLERATING WELL. NO SOB OR S/S OF RESPIRATORY DISTRESS. BREATHING EVEN AND UNLABORED. IV ACCESS FAUZIA ML SL, INTACT AND PATENT. DUE MEDS GIVEN ORDERED. SAFETY PRECAUTIONS IN PLACE AT ALL TIMES. BED IN LOWEST LOCKED POSITION, HOB ELEVATED, SIDE RAILS UP X2, AND CALL LIGHT AND TABLE WITHIN REACH. ALL NEEDS MET AT THIS TIME.
[2022-04-23 07:00] VITALS: BP 154/80
--- NOTE | 2022-04-23 07:25 | NUR ---
MS RN OPENING NOTE RECEIVED PT AWAKE AND RESTING IN BED. PT A/O X3, DANISH SPEAKING. ABLE TO MAKE NEEDS KNOWN. ON O2 AT 2L/MIN VIA NASAL CANNULA, TOLERATING WELL. NO SOB NOTED. NOT IN ANY SIGN OF RESPIRATORY DISTRESS. IV ACCESS IN FAUZIA MIDLINE, INTACT AND PATENT. PT REFUSES IV FLUIDS AT THIS TIME. SAFETY MEASURES IN PLACE: BED IN LOWEST AND LOCKED POSITION, SIDE RAILS UPX2, BED ALARM ON, AND CALL LIGHT WITHIN REACH. WILL CONTINUE TO MONITOR PT.
[2022-04-23] MEDS: PANTOPRAZOLE 40 MG TABLET.DR PO SCH (08:30)
[2022-04-23] MEDS: GLUCERNA SHAKE 237 ML CAN PO SCH ×3 (08:56→17:42)
[2022-04-23] MEDS: FLUCONAZOLE (100 MG) 100 MG TABLET PO SCH (09:07)
[2022-04-23] MEDS: methylPREDNISolone SOD SUCC 40 MG/ML VIAL IV SCH ×2 (09:07→17:27)
[2022-04-23] MEDS: DILTIAZEM HCL CD 240 MG PO SCH (09:08)
[2022-04-23] MEDS: SODIUM CHLORIDE 1000 MG TABLET PO SCH (09:08)
[2022-04-23] MEDS: CLOTRIMAZOLE 1% 15 GM TUBE TP SCH ×2 (09:11→17:42)
[2022-04-23] MEDS: APIXABAN 2.5 MG TABLET PO SCH ×2 (09:11→21:35)
[2022-04-23] MEDS: Magnesium 1GM/D5W 100ML PREMIX 100 ML IV SCH ×2 (12:05→13:22)
[2022-04-23] MEDS: INSULIN REGULAR, HUMAN 100 UNIT/ML 3 ML VIAL SQ PRN ×2 (12:05→17:59)
[2022-04-23] MEDS: CALCIUM CARB 600MG /VIT D 1 EACH TABLET PO SCH (12:58)
[2022-04-23] MEDS: DOCUSATE SODIUM 100 MG CAPSULE PO SCH (12:58)
[2022-04-23] MEDS ORDERED: SODI100037 PO (13:24)
[2022-04-23] MEDS ORDERED: METO25TA20 PO (13:24)
[2022-04-23] MEDS ORDERED: PRED20TA PO (13:24)
[2022-04-23] MEDS ORDERED: FLUC100T8 PO (13:24)
[2022-04-23] MEDS ORDERED: CLOT15CR35 TP (13:24)
[2022-04-23] MEDS ORDERED: DILT240C88 PO (13:24)
[2022-04-23 17:26] LABS: BAND % (MANUAL) 4 % (0.0-5.0); BASOPHILS % (MANUAL) 0 % (0.0-2.0); EOSINOPHILS % (MANUAL) 0 % (0-4); LYMPHOCYTES % (MANUAL) 4 % (16-48); MONOCYTES % (MANUAL) 5 % (0-11.0); NEUTROPHILS % (MANUAL) 87 (42-76)
--- NOTE | 2022-04-23 19:50 | NUR ---
MS RN CLOSING NOTE PT AWAKE AND RESTING IN BED. PT A/O X3, [place] SPEAKING. ABLE TO MAKE NEEDS KNOWN. ON O2 AT 2L/MIN VIA NASAL CANNULA, TOLERATING WELL. NO SOB NOTED. NOT IN ANY SIGN OF RESPIRATORY DISTRESS. IV ACCESS IN FAUZIA MIDLINE, INTACT AND PATENT. PT REFUSES IV FLUIDS AT THIS TIME. ALL NEEDS ATTENDED. KEPT CLEAN AND COMFORTABLE. SAFETY MEASURES IN PLACE: BED IN LOWEST AND LOCKED POSITION, SIDE RAILS UPX2, BED ALARM ON, AND CALL LIGHT WITHIN REACH. ENDORSED [facility] SHIFT NURSE FOR CYNTHIA.
[2022-04-23 20:49] VITALS: BP 146/95
[2022-04-23] MEDS: ATORVASTATIN 10 MG TABLET PO SCH (21:35)
[2022-04-23] MEDS: TRAZODONE 50 MG TABLET PO PRN ×2 (21:58→22:27)
[2022-04-23] MEDS ORDERED: ZOLPIDEM TARTRATE 5 MG TABLET PO PRN (23:00)
[2022-04-24] MEDS: LEVALBUTEROL HCL NEB 1.25 MG/0.5 ML VIAL.NEB NEB SCH ×5 (00:29→14:31)
[2022-04-24 00:36] VITALS: BP 135/87
[2022-04-24] MEDS: IPRATROPIUM NEB FS 0.5 MG/2.5 ML AMPUL.NEB NEB SCH ×3 (01:38→12:30)
[2022-04-24] MEDS: METOPROLOL TARTRATE 25 MG TABLET PO SCH ×3 (06:18→17:14)
[2022-04-24 06:31] LABS: EOSINOPHILS % (AUTO) 0.1 % (0.0-6.0); HEMATOCRIT 29 % (33-45); HEMOGLOBIN 9.4 g/dL (11.5-14.8); LYMPHOCYTES # (AUTO) 0.4 K/uL (0.8-4.8); LYMPHOCYTES % (AUTO) 2.3 % (20.0-44.0); MEAN CORPUSCULAR HGB CONC 33 g/dl (31.0-36.0); MEAN CORPUSCULAR VOLUME 84 fL (82-100); MONOCYTES # (AUTO) 1.8 K/uL (0.1-1.30); MONOCYTES % (AUTO) 10.1 % (2.0-12.0); NEUTROPHILS # (AUTO) 15.5 K/uL (1.8-8.9); NEUTROPHILS % (AUTO) 87.5 % (43.0-81.0); PLATELET COUNT (AUTO) 417 K/uL (150-450); WHITE BLOOD COUNT (AUTO) 17.8 K/uL (4.3-11.0)
[2022-04-24] MEDS: BLOOD SUGAR DIAGNOSTIC 1 EACH STRIP IN SCH ×3 (06:33→17:12)
--- NOTE | 2022-04-24 06:34 | NUR ---
MS RN CLOSING NOTE PT AWAKE IN BED. PT STABLE ON O2 @ 2LPM VIA NC, TOLERATING WELL. NO SOB OR S/S OF RESPIRATORY DISTRESS. BREATHING EVEN AND UNLABORED. IV ACCESS FAUZIA ML SL, INTACT AND PATENT. DUE MEDS GIVEN ORDERED. SAFETY PRECAUTIONS IN PLACE AT ALL TIMES. BED IN LOWEST LOCKED POSITION, HOB ELEVATED, SIDE RAILS UP X2, AND CALL LIGHT AND TABLE WITHIN REACH. ALL NEEDS MET AT THIS TIME AND WILL ENDORSE TO ONCOMING NURSE FOR CYNTHIA.
[2022-04-24 07:13] LABS: ALBUMIN 2.7 g/dL (3.4-5.0); BILIRUBIN,TOTAL 0.7 mg/dL (0.2-1.0); CALCIUM, SERUM 8.5 mg/dL (8.5-10.1); CREATININE 0.7 mg/dL (0.6-1.3); MAGNESIUM 1.9 mg/dL (1.8-2.4); PHOSPHORUS 3.3 mg/dL (2.5-4.9); TOTAL PROTEIN, SERUM 6.1 g/dL (6.4-8.2)
--- NOTE | 2022-04-24 07:26 | NUR ---
MS RN OPENING NOTE RECEIVED PT AWAKE AND RESTING IN BED. PT A/O X3, [place] SPEAKING. ABLE TO MAKE NEEDS KNOWN. ON O2 AT 2L/MIN VIA NASAL CANNULA, TOLERATING WELL. NO SOB NOTED. NOT IN ANY SIGN OF RESPIRATORY DISTRESS. IV ACCESS IN FAUZIA MIDLINE, INTACT AND PATENT. SAFETY MEASURES IN PLACE: BED IN LOWEST AND LOCKED POSITION, SIDE RAILS UPX2, BED ALARM ON, AND CALL LIGHT WITHIN REACH. WILL CONTINUE TO MONITOR PT.
[2022-04-24 07:31] LABS: POTASSIUM 4.6 mmol/L (3.5-5.1)
[2022-04-24 08:00] VITALS: BP 138/81
[2022-04-24] MEDS: PANTOPRAZOLE 40 MG TABLET.DR PO SCH (08:18)
[2022-04-24] MEDS: GLUCERNA SHAKE 237 ML CAN PO SCH ×3 (08:20→17:12)
[2022-04-24] MEDS: methylPREDNISolone SOD SUCC 40 MG/ML VIAL IV SCH ×2 (08:37→17:14)
[2022-04-24] MEDS: FLUCONAZOLE (100 MG) 100 MG TABLET PO SCH (08:37)
[2022-04-24] MEDS: DILTIAZEM HCL CD 240 MG PO SCH (08:38)
[2022-04-24] MEDS: SODIUM CHLORIDE 1000 MG TABLET PO SCH (08:38)
[2022-04-24] MEDS: CALCIUM CARB 600MG /VIT D 1 EACH TABLET PO SCH (08:38)
[2022-04-24] MEDS: CLOTRIMAZOLE 1% 15 GM TUBE TP SCH ×2 (08:40→17:15)
[2022-04-24] MEDS: APIXABAN 2.5 MG TABLET PO SCH (08:40)
[2022-04-24] MEDS ORDERED: CALCIUM CARB 600MG /VIT D 1 EACH TABLET PO SCH (09:00)
--- NOTE | 2022-04-24 10:20 | NUR ---
RN NOTE TRANSFERRED CYNTHIA AND REPORT GIVEN TO GALEN DAVENPORT.
[2022-04-24 12:00] VITALS: BP 133/78
[2022-04-24] MEDS: DOCUSATE SODIUM 100 MG CAPSULE PO SCH (12:32)
[2022-04-24] MEDS: INSULIN REGULAR, HUMAN 100 UNIT/ML 3 ML VIAL SQ PRN ×2 (12:33→17:26)
--- NOTE | 2022-04-24 12:41 | NUR ---
RN NOTE PT REFUSED INSULIN REGULAR SLIDING SCALE COVERAGE. BLOOD GLUCOSE IS 137. EXPLAINED THE RISKS OF NOT GETTING INSULIN. PT STILL REFUSED. WILL CONTINUE TO MONITOR.
[2022-04-24 15:52] VITALS: BP 132/76
[2022-04-24 17:14] VITALS: BP 132/76
--- NOTE | 2022-04-24 18:15 | NUR ---
DISCHARGE NOTE RECEIVED ORDER FOR DISCHARGE. PT A/OX3, ON 2L O2 VIA NC, NO SOB/DISTRESS NOTED. VS SIGNS TAKEN FOLLOWS BP 132/76, P 62, R 18, TEMP 97.6, O2 SAT 94%. ALL BELONGINGS ACCOUNTED FOR. PHOTOS OF SKIN TAKEN AND PLACED IN CHART. PUREWICK REMOVED, OUTPUT OF 200CC NOTED, CLEAR YELLOW URINE. GAVE REPORT TO GALEN AHMADI IN THE [facility] ACUTE. IV ACCESS REMOVED, PRESSURE DRESSING APPLIED. EXIT FOLDER GIVE TO EMT. PT LEFT IS STABLE CONDITION WITH 3 GLASS CUTTING MACHINE FEEDER VIA AMBULANCE.
== END 2022-04-24 18:17 | DRG 871 ==
LOC: TELE 18:31
PROVIDERS: ADMIT Nurse Practitioner Family; ATTEND Nurse Practitioner Acute Care
PROC: 30233N1 Transfusion of Nonautologous Red Blood Cells into Peripheral Vein, Percutaneous Approach (ICD-10-PCS; principal; 2022-04-16)
PROC: 05HF33Z Insertion of Infusion Device into Left Cephalic Vein, Percutaneous Approach (ICD-10-PCS; 2022-04-17)
DX: A41.9 Sepsis, unspecified organism (principal); I21.A1 Myocardial infarction type 2; J96.01 Acute respiratory failure with hypoxia; J69.0 Pneumonitis due to inhalation of food and vomit; E22.2 Syndrome of inappropriate secretion of antidiuretic hormone; E87.3 Alkalosis; N17.9 Acute kidney failure, unspecified; Z20.822 Contact with and (suspected) exposure to COVID-19; Y95 Nosocomial condition; I48.91 Unspecified atrial fibrillation; I10 Essential (primary) hypertension; I27.20 Pulmonary hypertension, unspecified; E78.5 Hyperlipidemia, unspecified; K21.9 Gastro-esophageal reflux disease without esophagitis; Z86.711 Personal history of pulmonary embolism; Z86.718 Personal history of other venous thrombosis and embolism; K27.9 Peptic ulcer, site unspecified, unspecified as acute or chronic, without hemorrhage or perforation; I71.21 Aneurysm of the ascending aorta, without rupture; E83.41 Hypermagnesemia; E11.9 Type 2 diabetes mellitus without complications; Z79.01 Long term (current) use of anticoagulants; Z87.19 Personal history of other diseases of the digestive system; B37.9 Candidiasis, unspecified; D64.9 Anemia, unspecified; E83.51 Hypocalcemia; T50.1X5A Adverse effect of loop [high-ceiling] diuretics, initial encounter; Y92.9 Unspecified place or not applicable; E83.42 Hypomagnesemia; I08.0 Rheumatic disorders of both mitral and aortic valves; I70.0 Atherosclerosis of aorta; T38.0X5A Adverse effect of glucocorticoids and synthetic analogues, initial encounter
CPT/HCPCS: 36415; 71045-TC; 71250-TC; 80048-TC; 80053-TC; 80061-TC; 80202-TC; 82272-TC; 82962-TC; 83735-TC; 84100-TC; 84300-TC; 84443-TC; 84484-TC; 85025-TC; 86850-TC; 87040-TC; 87081-TC; 87806; 92526; 92611-TC; 93307-TC; 93970-TC; 94799-TC; 97112-TC; 97116-TC; 97530-TC; A6253; A6403; G0378; J0692; J1650; J1815; J1940; J2920; J3370; J3475; J3480; J3490; J7030; J7050; J7060; P9016; Q0163